=== PATIENT | male | born 1950 | race Caucasian/White ===

== ENCOUNTER 2023-01-13 08:23 | Inpatient (IN) | payer OTHER ==
[~2023-01-13] VITALS: Ht 170.2 cm; Wt 111.2 kg
[~2023-01-13 08:23] MED LIST: AMLO1TAB23 PO; LISI20TA56 PO
[2023-01-13] MEDS ORDERED: ceFAZolin 1GM/50ML 100 ML IV ONE (09:03)
[2023-01-13] MEDS ORDERED: MIDAZOLAM HCL 2MG/2ML 2ml VIAL (1mg/ml) ONE (10:41)
[2023-01-13] MEDS ORDERED: PROPOFOL 10 MG/ML 20 ML IV ONE ×3 (10:41→11:35)
[2023-01-13] MEDS ORDERED: DexAMETHasone SOD PHOS 10MG/1ML VIAL INJ ONE ×2 (10:41→11:24)
[2023-01-13] MEDS ORDERED: HYDROmorphone HCL 2 MG/ML VL/or syr ONE (10:41)
[2023-01-13] MEDS ORDERED: fentaNYL CITRATE 100 MCG/2 ML VL ONE (10:43)
[2023-01-13] MEDS ORDERED: fentaNYL CITRATE 5 ML ONE (10:43)
[2023-01-13] MEDS ORDERED: KETOROLAC TROMETH 30 MG/ML 1ML VIAL ONE (11:24)
[2023-01-13] MEDS ORDERED: GLYCOPYRROLATE 0.2 MG/ML 1ML VIAL ONE (11:24)
[2023-01-13] MEDS ORDERED: ONDANSETRON HCL 4 MG/2 ML VIAL ONE (11:24)
[2023-01-13] MEDS ORDERED: MORPHINE SULFATE INJ 2 MG/ml SYRG IV PRN (11:45)
[2023-01-13] MEDS ORDERED: NITROGLYCERIN 0.4 MG SL TAB SL PRN (11:45)
[2023-01-13] MEDS ORDERED: ONDANSETRON HCL 4 MG/2 ML VIAL IV PRN ×2 (11:45→13:15)
[2023-01-13] MEDS ORDERED: LABETALOL HCL 5 MG/ML 4ML SYRINGE IV PRN (13:15)
[2023-01-13] MEDS ORDERED: MORPHINE SULFATE 4 MG/ML SYR/VIAL IV PRN (13:15)
[2023-01-13] MEDS ORDERED: ePHEDrine SULFATE 50 MG/ML AMP IV PRN (13:15)
[2023-01-13] MEDS ORDERED: MIDAZOLAM HCL 2MG/2ML 2ml VIAL (1mg/ml) IV PRN (13:15)
[2023-01-13] MEDS ORDERED: HYDROmorphone HCL 2 MG/ML VL/or syr IV PRN (13:15)
[2023-01-13] MEDS: CYCLOBENZAPRINE HCL 10 MG TAB PO SCH ×2 (14:23→21:01)
[2023-01-13 15:31] VITALS: RESP 12; O2SAT 99
[2023-01-13 16:55] VITALS: BP 126/81; PULSE 67; RESP 18; TEMP 98.7; O2SAT 96
[2023-01-13 17:28] VITALS: BP 126/81; PULSE 67; RESP 18; TEMP 98.7; O2SAT 96
[2023-01-13] MEDS ORDERED: ETOMIDATE (2MG/ML) 20ML VIAL IV ONE (17:33)
[2023-01-13] MEDS ORDERED: PHENYLEPHRINE HCL 10 MG/ML VL IV ONE (17:33)
[2023-01-13] MEDS ORDERED: ROCURONIUM 10MG/ML 10ML VIAL IV ONE (17:33)
[2023-01-13] MEDS: ceFAZolin 1GM/50ML 50 ML IV SCH (19:51)
[2023-01-13] MEDS: MORPHINE SULFATE INJ 2 MG/ml SYRG IV PRN (19:53)
[2023-01-13 20:00] VITALS: BP 114/51; PULSE 71; PULSE 74; RESP 18; O2SAT 94
[2023-01-13] MEDS: DOCUSATE SOD 100 MG CAP PO SCH (21:00)
[2023-01-13] MEDS: D5W/SOD CHLO 0.9% 1,000 ML IV SCH (21:05)
[2023-01-13 22:00] VITALS: BP 114/51; PULSE 71; RESP 18; TEMP 98; O2SAT 94
[2023-01-14] VITALS (9 sets, daily range): BP systolic 121–149; BP diastolic 52–75; PULSE 67–99; RESP 18–24; TEMP 98–101.3; O2SAT 91–97
[2023-01-14] MEDS: ceFAZolin 1GM/50ML 50 ML IV SCH (00:51)
[2023-01-14] MEDS: MORPHINE SULFATE INJ 2 MG/ml SYRG IV PRN ×3 (01:05→16:40)
[2023-01-14] MEDS: HYDROcodone-ACET 10/325MG TAB PO PRN ×2 (05:13→18:22)
[2023-01-14] MEDS: CYCLOBENZAPRINE HCL 10 MG TAB PO SCH ×3 (05:13→23:30)
[2023-01-14] MEDS: D5W/SOD CHLO 0.9% 1,000 ML IV SCH ×2 (07:45→14:57)
[2023-01-14] MEDS: ACETAMINOPHEN 325 MG TAB PO PRN ×2 (08:55→22:34)
[2023-01-14] MEDS: DOCUSATE SOD 100 MG CAP PO SCH ×2 (08:55→23:29)
[2023-01-14] MEDS: LISINOPRIL 20 MG TAB PO SCH (08:59)
[2023-01-14 11:34] LABS: Basophils # (auto) 0 10 ^3/uL (0-0.2); Basophils % (auto) 0.2 % (0.0-2.0); Eosinophils # (auto) 0 10 ^3/uL (0-0.8); Hematocrit 33.4 % (41.0-53.0); Hemoglobin 11.7 g/dL (13.5-17.5); Lymphocytes # (auto) 0.3 10 ^3/uL (0.4-5.4); Lymphocytes % (auto) 3.9 % (10.0-50.0); Mean Corpuscular Hemoglobin 33.7 pg (28.0-32.0); Mean Corpuscular Hgb Conc. 34.9 g/dL (32.0-36.0); Mean Corpuscular Volume 96.4 fL (80.0-100.0); Monocytes # (auto) 0.4 10 ^3/uL (0-1.3); Monocytes % (auto) 4.2 % (0.0-12.0); Neutrophils # (auto) 7.8 10 ^3/uL (1.6-8.6); Neutrophils % (auto) 91.7 % (37.0-80.0); Red Blood Cells 3.47 10^6/uL (4.5-5.90); Red Cell Distribution Width 13.1 % (11.8-14.3); White Blood Cell 8.5 10^3/uL (4.4-10.8)
[2023-01-14 12:10] LABS: Anion Gap 8.1 (5-15); Calcium 8.5 mg/dL (8.5-10.1); Carbon Dioxide 21.9 mmol/L (20-30); Chloride 104 mmol/L (98-107); Potassium 4.4 mmol/L (3.5-5.1); Sodium 134 mmol/L (136-145)
[2023-01-14 12:16] LABS: BUN/Creatinine Ratio 14.9 (10.0-20.0); Blood Urea Nitrogen 17 mg/dL (9-23); Glucose 192 mg/dL (74-106)
[2023-01-14] MEDS: traZODone HCL 50 MG TAB PO SCH ×2 (13:39→22:00)
[2023-01-15] VITALS (10 sets, daily range): BP systolic 122–147; BP diastolic 51–74; PULSE 71–100; RESP 20–24; TEMP 98.7–102; O2SAT 90–95
[2023-01-15] MEDS ORDERED: ACETAMINOPHEN 325 MG TAB PO PRN (01:00)
[2023-01-15] MEDS: D5W/SOD CHLO 0.9% 1,000 ML IV SCH ×3 (06:00→23:45)
[2023-01-15] MEDS: traZODone HCL 50 MG TAB PO SCH ×3 (06:00→22:00)
[2023-01-15] MEDS: CYCLOBENZAPRINE HCL 10 MG TAB PO SCH ×3 (06:34→23:30)
[2023-01-15 06:41] LABS: Chloride 101 mmol/L (98-107); Sodium 133 mmol/L (136-145)
[2023-01-15 06:42] LABS: Anion Gap 5.2 (5-15); Calcium 8.3 mg/dL (8.7-10.4); Carbon Dioxide 26.8 mmol/L (20-30)
[2023-01-15 06:47] LABS: BUN/Creatinine Ratio 12.7 (10.0-20.0); Blood Urea Nitrogen 16 mg/dL (9-23); Glucose 170 mg/dL (74-106)
[2023-01-15 06:53] LABS: Basophils # (auto) 0 10 ^3/uL (0-0.2); Basophils % (auto) 0.5 % (0.0-2.0); Eosinophils # (auto) 0 10 ^3/uL (0-0.8); Hematocrit 34.7 % (41.0-53.0); Lymphocytes # (auto) 0.5 10 ^3/uL (0.4-5.4); Mean Corpuscular Hemoglobin 33.8 pg (28.0-32.0); Mean Corpuscular Hgb Conc. 34.6 g/dL (32.0-36.0); Mean Corpuscular Volume 97.7 fL (80.0-100.0); Monocytes # (auto) 0.4 10 ^3/uL (0-1.3); Neutrophils # (auto) 3.6 10 ^3/uL (1.6-8.6); Neutrophils % (auto) 79.5 % (37.0-80.0); Nucleated Red Blood Cells % 0.1 %; Red Blood Cells 3.55 10^6/uL (4.5-5.90); Red Cell Distribution Width 13.4 % (11.8-14.3); White Blood Cell 4.5 10^3/uL (4.4-10.8)
[2023-01-15] MEDS: DOCUSATE SOD 100 MG CAP PO SCH ×2 (10:37→23:30)
[2023-01-15] MEDS: LISINOPRIL 20 MG TAB PO SCH (10:38)
[2023-01-15] MEDS: HYDROcodone-ACET 10/325MG TAB PO PRN (10:38)
[2023-01-16] VITALS (8 sets, daily range): BP systolic 99–123; BP diastolic 51–97; PULSE 84–110; RESP 20–22; TEMP 98.5–103.5; O2SAT 90–99
[2023-01-16] MEDS: CYCLOBENZAPRINE HCL 10 MG TAB PO SCH ×3 (06:00→20:15)
[2023-01-16] MEDS: traZODone HCL 50 MG TAB PO SCH ×3 (06:00→20:15)
[2023-01-16] MEDS: LISINOPRIL 20 MG TAB PO SCH (10:00)
[2023-01-16] MEDS ORDERED: levoFLOXacin 500MG 100 ML IV ONE (13:33)
[2023-01-16] MEDS: D5W/SOD CHLO 0.9% 1,000 ML IV SCH ×2 (13:59→19:45)
[2023-01-16] MEDS: DOCUSATE SOD 100 MG CAP PO SCH ×2 (14:00→21:52)
[2023-01-16] MEDS: POLYETHYLENE GLYCOL 17 GM PWDR PO PRN (15:11)
[2023-01-16] MEDS ORDERED: VANCOMYCIN PER PHARMACY 0 MG IV SCH (15:45)
[2023-01-16] MEDS ORDERED: VANCOMYCIN 1GM/250ML 250 ML IV ONE (16:00)
[2023-01-16] MEDS: CEFTRIAXONE SODIUM 2 GM in D5W 5% 100 ML IV SCH (19:02)
[2023-01-16 21:52] LABS: Urine Bacteria FEW /hpf (None Seen); Urine Blood TRACE /uL (Negative); Urine Clarity Clear (Clear); Urine Color Yellow (Yellow); Urine Protein, UAD 1+ (Negative); Urine Specific Gravity 1.019 (1.001-1.035); Urine WBC 1 /hpf (0 - 3)
[2023-01-17] VITALS (7 sets, daily range): BP systolic 89–121; BP diastolic 42–67; PULSE 67–83; RESP 17–21; TEMP 98.7–99.4; O2SAT 93–96
[2023-01-17] MEDS: D5W/SOD CHLO 0.9% 1,000 ML IV SCH ×2 (05:45→15:45)
[2023-01-17] MEDS: traZODone HCL 50 MG TAB PO SCH ×3 (06:00→21:37)
[2023-01-17] MEDS: CYCLOBENZAPRINE HCL 10 MG TAB PO SCH ×3 (06:00→21:40)
[2023-01-17] MEDS: VANCOMYCIN 1GM/250ML 250 ML IV SCH ×2 (06:15→21:39)
[2023-01-17] MEDS: LISINOPRIL 20 MG TAB PO SCH (10:00)
[2023-01-17 10:36] LABS: Basophils # (auto) 0 10 ^3/uL (0-0.2); Basophils % (auto) 0.7 % (0.0-2.0); Eosinophils # (auto) 0 10 ^3/uL (0-0.8); Eosinophils % (auto) 0.2 % (0.0-7.0); Hematocrit 28.4 % (41.0-53.0); Lymphocytes # (auto) 0.8 10 ^3/uL (0.4-5.4); Mean Corpuscular Hemoglobin 33.5 pg (28.0-32.0); Mean Corpuscular Hgb Conc. 35.3 g/dL (32.0-36.0); Mean Corpuscular Volume 94.8 fL (80.0-100.0); Monocytes # (auto) 0.7 10 ^3/uL (0-1.3); Monocytes % (auto) 12.3 % (0.0-12.0); Neutrophils # (auto) 4.1 10 ^3/uL (1.6-8.6); Neutrophils % (auto) 71.8 % (37.0-80.0); Nucleated Red Blood Cells % 0.1 %; Red Blood Cells 2.99 10^6/uL (4.5-5.90); Red Cell Distribution Width 13.2 % (11.8-14.3); White Blood Cell 5.7 10^3/uL (4.4-10.8)
[2023-01-17 10:41] LABS: Anion Gap 6.4 (5-15); Carbon Dioxide 23.6 mmol/L (20-30); Chloride 101 mmol/L (98-107); Potassium 3.7 mmol/L (3.5-5.1); Sodium 131 mmol/L (136-145)
[2023-01-17 10:42] LABS: Calcium 7.9 mg/dL (8.5-10.1)
[2023-01-17 10:47] LABS: BUN/Creatinine Ratio 14.6 (10.0-20.0); Blood Urea Nitrogen 15 mg/dL (9-23); Glucose 154 mg/dL (74-106)
[2023-01-17] MEDS: CEFTRIAXONE SODIUM 2 GM in D5W 5% 100 ML IV SCH (11:10)
[2023-01-17] MEDS: DOCUSATE SOD 100 MG CAP PO SCH ×2 (11:17→21:39)
[2023-01-17] MEDS: POLYETHYLENE GLYCOL 17 GM PWDR PO PRN (13:47)
[2023-01-17] MEDS: traMADol HCL 50 MG TAB PO PRN ×2 (13:47→20:23)
[2023-01-17] MEDS: SODIUM CHLORIDE 0.9% 1,000 ML IV SCH (17:45)
[2023-01-18] VITALS (7 sets, daily range): BP systolic 112–149; BP diastolic 46–77; PULSE 64–82; RESP 18–20; TEMP 98.2–98.8; O2SAT 93–97
[2023-01-18] MEDS: SODIUM CHLORIDE 0.9% 1,000 ML IV SCH ×3 (03:44→23:45)
[2023-01-18] MEDS: traMADol HCL 50 MG TAB PO PRN (04:42)
[2023-01-18] MEDS: CYCLOBENZAPRINE HCL 10 MG TAB PO SCH ×2 (06:00→14:00)
[2023-01-18] MEDS: traZODone HCL 50 MG TAB PO SCH ×2 (06:01→14:00)
[2023-01-18] MEDS: LISINOPRIL 20 MG TAB PO SCH (10:00)
[2023-01-18] MEDS: DOCUSATE SOD 100 MG CAP PO SCH ×2 (10:00→23:06)
[2023-01-18] MEDS: CEFTRIAXONE SODIUM 2 GM in D5W 5% 100 ML IV SCH (10:31)
[2023-01-18] MEDS: VANCOMYCIN 1GM/250ML 250 ML IV SCH (11:35)
[2023-01-18] MEDS ORDERED: MEROPENEM IV SCH (15:00)
[2023-01-18] MEDS: MEROPENEM 2 GM in SODIUM CHL 0.9% 250 ML IV SCH ×2 (17:24→23:08)
[2023-01-18] MEDS: HYDROcodone-ACET 10/325MG TAB PO PRN (23:07)
[2023-01-19] VITALS (7 sets, daily range): BP systolic 122–136; BP diastolic 55–69; PULSE 66–80; RESP 16–20; TEMP 98.2–98.6; O2SAT 94–95
[2023-01-19] MEDS: MEROPENEM 2 GM in SODIUM CHL 0.9% 250 ML IV SCH ×3 (06:27→22:27)
[2023-01-19] MEDS: HYDROcodone-ACET 10/325MG TAB PO PRN ×3 (06:30→19:08)
[2023-01-19] MEDS: DOCUSATE SOD 100 MG CAP PO SCH ×2 (09:33→22:22)
[2023-01-19] MEDS: LISINOPRIL 20 MG TAB PO SCH (09:33)
[2023-01-19] MEDS: SODIUM CHLORIDE 0.9% 1,000 ML IV SCH ×2 (09:45→22:22)
[2023-01-20] MEDS: HYDROcodone-ACET 10/325MG TAB PO PRN ×4 (00:58→22:25)
[2023-01-20 05:00] VITALS: BP 130/47; PULSE 68; RESP 20; TEMP 98.4; O2SAT 94
[2023-01-20] MEDS: SODIUM CHLORIDE 0.9% 1,000 ML IV SCH ×2 (05:45→15:45)
[2023-01-20] MEDS: MEROPENEM 2 GM in SODIUM CHL 0.9% 250 ML IV SCH ×3 (06:46→22:26)
[2023-01-20 08:00] VITALS: BP 121/53; PULSE 69; PULSE 70; RESP 20; TEMP 98.5; O2SAT 97
[2023-01-20] MEDS: LISINOPRIL 20 MG TAB PO SCH (10:00)
[2023-01-20 12:00] VITALS: BP 113/46; PULSE 74; RESP 20; TEMP 98.3; O2SAT 94
[2023-01-20] MEDS: DOCUSATE SOD 100 MG CAP PO SCH ×2 (13:38→22:25)
[2023-01-20 16:00] VITALS: BP 118/61; PULSE 70; RESP 22; TEMP 98.4; O2SAT 96
[2023-01-20 20:00] VITALS: PULSE 76
[2023-01-20 22:00] VITALS: BP 149/63; PULSE 81; RESP 20; TEMP 98.8; O2SAT 96
[2023-01-21] MEDS: SODIUM CHLORIDE 0.9% 1,000 ML IV SCH (01:36)
[2023-01-21 04:55] VITALS: BP 193/76; PULSE 68; RESP 20; TEMP 98.2; O2SAT 98
[2023-01-21] MEDS: traMADol HCL 50 MG TAB PO PRN (06:45)
[2023-01-21] MEDS: MEROPENEM 2 GM in SODIUM CHL 0.9% 250 ML IV SCH ×2 (06:46→15:06)
[2023-01-21 08:00] VITALS: BP 113/76; PULSE 74; RESP 17; TEMP 36.8; O2SAT 93
[2023-01-21] MEDS: HYDROcodone-ACET 10/325MG TAB PO PRN (08:55)
[2023-01-21] MEDS: LISINOPRIL 20 MG TAB PO SCH (08:56)
[2023-01-21] MEDS: DOCUSATE SOD 100 MG CAP PO SCH (08:56)
[2023-01-21 09:11] VITALS: BP 119/46; PULSE 79; RESP 17; TEMP 98.1; O2SAT 93
[2023-01-21 13:01] VITALS: BP 128/54; PULSE 72; RESP 17; TEMP 98.3; O2SAT 94
[2023-01-21 13:15] VITALS: BP 119/46; TEMP 36.8
[2023-01-21 16:28] VITALS: BP 148/78; PULSE 69; RESP 18; TEMP 98.2; O2SAT 96
== END 2023-01-21 17:34 | disposition home health service (06) | DRG 855 ==
LOC: SUR 08:23 → TELE 11:43 → TELE-EAST 17:00
PROVIDERS: ADMIT Orthopaedic Surgery; ATTEND Internal Medicine
PROC: 00NY0ZZ Release Lumbar Spinal Cord, Open Approach (ICD-10-PCS; 2023-01-13)
PROC: 0SG1071 Fusion of 2 or more Lumbar Vertebral Joints with Autologous Tissue Substitute, Posterior Approach, Posterior Column, Open Approach (ICD-10-PCS; 2023-01-13)
PROC: 01NB0ZZ Release Lumbar Nerve, Open Approach (ICD-10-PCS; 2023-01-13)
PROC: 4A11X4G Monitoring of Peripheral Nervous Electrical Activity, Intraoperative, External Approach (ICD-10-PCS; 2023-01-13)
PROC: 0SG10AJ Fusion of 2 or more Lumbar Vertebral Joints with Interbody Fusion Device, Posterior Approach, Anterior Column, Open Approach (ICD-10-PCS; principal; 2023-01-13 11:39)
PROC: 05HC33Z Insertion of Infusion Device into Left Basilic Vein, Percutaneous Approach (ICD-10-PCS; 2023-01-21)
PROC: B54NZZA Ultrasonography of Left Upper Extremity Veins, Guidance (ICD-10-PCS; 2023-01-21)
DX: A41.59 Other Gram-negative sepsis (principal); M96.1 Postlaminectomy syndrome, not elsewhere classified; I10 Essential (primary) hypertension; R50.82 Postprocedural fever; M54.16 Radiculopathy, lumbar region; Z80.0 Family history of malignant neoplasm of digestive organs; Z82.49 Family history of ischemic heart disease and other diseases of the circulatory system; Z98.1 Arthrodesis status; Z85.038 Personal history of other malignant neoplasm of large intestine; Z90.49 Acquired absence of other specified parts of digestive tract; Z92.21 Personal history of antineoplastic chemotherapy
CPT/HCPCS: 36415; 71045; 72100; 76000; 76870; 80048; 80202; 81001; 82565; 84484; 85025; 86850; 86900; 86901; 87040; 87077; 87186; 93005; 96379; 97110; 97116; 97163; 97530; G0378; J0690; J0696; J1100; J1885; J1956; J2250; J2405; J2704; J7042; J7060